=== PATIENT | female | born 1995 | race Caucasian/White ===

== ENCOUNTER → 2017-09-04 | Outpatient (CLI) | payer OTHER | LOC: BMCIMAGING 10:10 | PROVIDERS: ATTEND Family Medicine | DX: R07.81 Pleurodynia (principal) ==

== ENCOUNTER 2018-01-04 14:11 | Emergency (ER) | payer OTHER ==
--- NOTE | 2018-01-04 14:26 | EDPHY ---
H & P Stated Complaint: fall Source: Patient Exam Limitations: No limitations - Personal History LMP (Females 10-55): IUD In Place Current Tetanus/Diphtheria Vaccine: Yes Current Tetanus Diphtheria and Acellular Pertussis (TDAP): Yes - Medical/Surgical History Hx Asthma: No Hx Chronic Respiratory Disease: No Hx Diabetes: No Hx Cardiac Disease: No Hx Renal Disease: No Hx Cirrhosis: No Hx Alcoholism: No Hx HIV/AIDS: No Hx Splenectomy or Spleen Trauma: No Other PMH: pmh- anxiety, nasal surgery - Social History Smoking Status: Former smoker Time Seen by Provider: 01/04/18 14:25 HPI/ROS: HPI: This is a 22-year-old female who presents with Chief Complaint: Fall Thursday, neck and back pain Location: Neck and back Quality: Injury Duration: Thursday around 8:30 p.m. Signs and Symptoms: No bleeding, no radiation, no numbness, no weakness, no tingling, no incontinence, no decreased range of motion, no swelling, + pain, no fever Timing: Acute Severity: Mild Context: [place] at [place]. She lost her balance and fell approximately 1-3 feet landing directly on the rocks. She reports that she heard her neck to her lower back and sustained abrasions as well. Denies LOC/head injury/neck pain/ dizziness/nausea/vomiting/amnesia. She was ambulatory at the scene. She did not break her camera during the fall. Patient reports that her mid to lower back have improved over the last day or 2 and she has no change in bowel or bladder habits. She is ambulatory without any deficits. She reports that her mid neck continues to have some pain with decreased range of motion laterally secondary to stiffness and pain. Denies any radiculopathy/numbness/weakness/ headache. No [id number] medications tried. She has washed the abrasions with soap and water. Reports current on tetanus. Modifying Factors: Local wound care Comment: ROS: see HPI Constitutional: No fever, no chills, no weight loss Eyes: No blurred vision Respiratory: No shortness of breath, no cough Cardiovascular: No chest pain Gastrointestinal: No nausea, no vomiting no diarrhea Genitourinary: No dysuria Extremities: No myalgias Neurologic: No weakness, no numbness Skin: No rashes Hematologic: No bruising, no bleeding MEDICAL/SURGICAL/SOCIAL HISTORY: Medical history: Anxiety Surgical history: Nasal surgery Social history: Employed at [employer] and [employer]. Family history noncontributory. CONSTITUTIONAL: Extremely polite and cooperative young adult white female, awake and alert, no obvious distress HEENT: Atraumatic and normocephalic, PERRL, EOMI. Nares patent; no rhinorrhea; no nasal mucosal edema. Tympanic membranes clear. Oropharynx clear, no exudate and moist pink mucosa. Airway patent. No lymphadenopathy. No meningismus. NECK: supple, no midline tenderness, flexion 45 degrees, extension 45 degrees, mildly decreased right and left lateral flexion by 15 degrees. No meningismus. Cardiovascular: Normal S1/S2, regular rate, regular rhythm, without murmur rub or gallop. PULMONARY/CHEST: Symmetrical and nontender. Clear to auscultation bilaterally. Good air movement. No accessory muscle usage. ABDOMEN: Soft, nondistended, nontender, no rebound, no guarding, no peritoneal signs, no masses or organomegaly. No CVAT. EXTREMITIES: 2/2 pulses, strength 5/5, no deformities, no clubbing, no cyanosis or edema. NEUROLOGICAL: no focal neuro deficits. GCS 15. SKIN: Warm and dry, well-healing abrasions noted to posterior neck, mid back, lower back; no erythema. no rash. Good capillary refill. (Shanice Morillo) Constitutional: Initial Vital Signs Temperature (C) 37 C 01/04/18 14:16 Heart Rate 104 H 01/04/18 14:16 Respiratory Rate 16 01/04/18 14:16 Blood Pressure 131/106 H 01/04/18 14:16 O2 Sat (%) 94 01/04/18 14:16 O2 Delivery Mode Room Air Allergies/Adverse Reactions: No Known Allergies Allergy (Unverified 01/04/18 14:16) Home Medications: Medication Instructions Recorded Klonopin 11/30/14 Cyclobenzaprine [Flexeril 10 MG 10 mg PO Q8 PRN #10 tab 01/04/18 (*)] oxyCODONE/APAP 5/325 [Percocet 1 - 2 tab PO Q4H PRN #10 tab 01/04/18 5/325 (*)] Medical Decision Making ED Course/Re-evaluation: Based on the NEXUS Cervical Spine Rule, cervical CT scan not indicated. 1) Focal neurologic deficit present: No 2) Midline spinal tenderness: No 3) Altered level of consciousness present: No 4) Intoxication present: No 5) Distracting injury present: No Cervical x-rays performed. I offered patient x-rays of her thoracic and lumbar sacral spine and she has politely declined as her symptoms have improved. Fall was accidental in nature. Abrasions are healing well and there are no signs of infection. No signs of neurovascular compromise/tenting of skin/compartment syndrome/ extremities and joints examined above and below area of concern and are neurovascularly intact. 1454: called by radiologist, Dr. Daly, who advised C7 spinous process fracture Cervical CT scan ordered 1559: Cervical CT scan shows minimally displaced C6 and C7 spinous process fractures ED decision to consult. Spoke with Dr. Castaneda, neurosurgery, who reports that this is a stable fracture. Recommends pain control and plus or minus soft collar dependent on comfort level. No repeat imaging is indicated. She is more than welcome to follow up with him outpatient. This patient was seen under the supervision of my secondary supervising physician. I evaluated care for this patient independently. Discussed this patient with Dr. Trotter who did not see the patient. (Shanice Morillo) Differential Diagnosis: Differential diagnosis includes but is not limited to contusion, paraspinous muscle strain, cervical fracture, disc herniation. (Shanice Morillo) Other Provider: The patient was evaluated and managed by the Physician [employer] Operator. I discussed the patient's presentation and course with the midlevel provider with them and agree with the evaluation. My co-signature indicates that I have reviewed this chart and I agree with the findings and plan of care as documented. I am the secondary supervising physician. (Jeanne Trotter) Departure - Departure Disposition: Home, Routine, Self-Care Clinical Impression: Accidental fall, Abrasions of multiple sites, Cervical strain, Fracture of cervical spinous process Condition: Good Instructions: Cervical Strain (ED), Cervical Fracture (ED), Soft Cervical Collar (ED), Abrasion (ED) Additional Instructions: Wash the abrasions daily with mild soap and water; then pat dry. Take Tylenol 650 mg every 4 hours and/or Ibuprofen 600 mg every 8 hours with food as needed for pain. Use Flexeril every 8 hr as needed for muscle spasms. Use Percocet 1 tab every 4-6 hours as needed for severe, breakthrough pain. Wear cervical soft collar to aid in your comfort level. It is recommended that you follow-up with Neurosurgery in 3-4 days for further evaluation. Return to the ER immediately if you have new or worsening back pain, fevers/ chills, flu like symptoms, incontinence or inability to urinate or defecate, weakness, paralysis, or any other symptom that concerns you. Referrals: Asad Castaneda MD [Medical Doctor] - As per Instructions Prescriptions: Cyclobenzaprine [Flexeril 10 MG (*)] 10 mg PO Q8 PRN #10 tab PRN Reason: Spasms oxyCODONE/APAP 5/325 [Percocet 5/325 (*)] 1 - 2 tab PO Q4H PRN #10 tab PRN Reason: Pain, Severe
[2018-01-04 16:14] VITALS: BP 140/88
== END 2018-01-04 16:14 | disposition home or self-care (01) ==
DX: S12.9XXA Fracture of neck, unspecified, initial encounter (principal); S16.1XXA Strain of muscle, fascia and tendon at neck level, initial encounter; T14.8XXA Other injury of unspecified body region, initial encounter; Z87.891 Personal history of nicotine dependence; W18.39XA Other fall on same level, initial encounter